=== PATIENT | female | born 1990 | race Caucasian/White ===

== ENCOUNTER 2024-04-14 10:44 | Observation (INO) | payer OTHER, SELFPAY ==
[2024-04-14 10:53] VITALS: BP 109/58; BMI 25.8
== END 2024-04-14 11:25 | disposition home or self-care (01) ==
LOC: LDRP 10:44
PROVIDERS: ADMITTING PHYSICIAN Student in an Organized Health Care Education/Training Program
DX: O36.8130 Decreased fetal movements, third trimester, not applicable or unspecified (principal); Z3A.29 29 weeks gestation of pregnancy
CPT/HCPCS: 59025; G0378

== ENCOUNTER 2024-06-28 07:11 | Inpatient (IN) | payer OTHER, SELFPAY ==
[2024-06-28 07:26] VITALS: BP 117/78; BMI 27.4
[2024-06-28] MEDS: LR 1000 IV (07:41)
[2024-06-28 07:56] LABS: % Basophils 0.2 % (0-2); % Eosinophils 0.3 % (0-6); % Immature Granulocytes 0.3 % (0-0.5); % Lymphocytes 13.8 % (20.5-51.1); % Neutrophils 80.4 % (42.2-75.2); Absolute Lymphocytes 1.4 10^3/uL (1.2-3.4); Absolute Monocytes 0.5 10^3/uL (0.1-0.6); Absolute Neutrophils 8.1 10^3/uL (1.4-6.5); Hematocrit 38.7 % (37.0-47.0); Hemoglobin 13.2 g/dL (12.0-16.0); Mean Corp Hgb Conc. 34.1 g/dL (33.0-37.0); Mean Corpuscular Hgb 28.8 pg (27.0-31.0); Mean Corpuscular Volume 84.3 fL (81.0-99.0); Mean Platelet Volume 12.6 fL (7.4-10.4); Nucleated Red Blood Cells % 0 %; Platelet Count 150 10^3/uL (130-400); Red Blood Cell Count 4.59 10^6/uL (4.20-5.40); Red Cell Dist. Width 13.2 % (11.5-14.5); White Blood Cell Count 10.1 10^3/uL (4.8-10.8)
[2024-06-28] MEDS: SUBLIMAZE 100 MCG EPIDURAL (09:03)
[2024-06-28] MEDS: FENTANYL/BUPIVACAINE 100 EPIDURAL (09:04)
[2024-06-28] MEDS: MOTRIN 600 MG PO ×2 (15:45→22:09)
[2024-06-28] MEDS: TYLENOL 650 MG PO ×2 (15:45→22:09)
[2024-06-29] MEDS: MOTRIN 600 MG PO ×3 (04:23→17:13)
[2024-06-29] MEDS: TYLENOL 650 MG PO ×3 (04:23→17:13)
[2024-06-29 05:42] LABS: Hematocrit 37.3 % (37.0-47.0); Hemoglobin 12.1 g/dL (12.0-16.0)
[2024-06-29] MEDS: SENOKOT-S 1 TABLET PO (08:57)
[2024-06-29] MEDS: PRENATAL PLUS 1 TABLET PO (08:57)
[2024-06-29 16:37] LABS: Syphilis/T. pallidum Ab Reflex Negative (Negative)
[2024-06-30] MEDS: MOTRIN 600 MG PO ×2 (00:01→06:35)
[2024-06-30] MEDS: TYLENOL 650 MG PO ×2 (00:01→06:34)
[2024-06-30] MEDS: PRENATAL PLUS 1 TABLET PO (08:01)
[2024-06-30] MEDS: SENOKOT-S 1 TABLET PO (08:16)
== END 2024-06-30 10:28 | disposition home or self-care (01) | DRG 807 ==
LOC: LDRP 07:11
PROVIDERS: Obstetrics & Gynecology; ADMITTING PHYSICIAN Obstetrics & Gynecology; FAMILY PHYSICIAN Internal Medicine
PROC: 0KQM0ZZ Repair Perineum Muscle, Open Approach (ICD-10-PCS; 2024-06-28)
PROC: 10E0XZZ Delivery of Products of Conception, External Approach (ICD-10-PCS; 2024-06-28)
DX: O48.0 Post-term pregnancy (principal); Z37.0 Single live birth; Z3A.40 40 weeks gestation of pregnancy; O70.1 Second degree perineal laceration during delivery; O77.0 Labor and delivery complicated by meconium in amniotic fluid
CPT/HCPCS: 36415; 85014; 85018; 85025; 86780; 86850; 86900; 86901